=== PATIENT | female | born 2000 | race Caucasian/White ===

== ENCOUNTER 2019-01-29 14:04 | Emergency (ER) | payer BC, OTHER ==
[~2019-01-29] VITALS: Ht 170.2 cm; Wt 65.8 kg
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
[2019-01-29] MEDS ORDERED: ACETAMINOPHEN 325 MG TABLET PO ONE (14:30)
[2019-01-29] MEDS ORDERED: IBUPROFEN 600 MG TABLET PO ONE ×2 (14:30→14:38)
[2019-01-29] MEDS ORDERED: ACETAMINOPHEN ES 500 MG TABLET ONE (14:37)
[2019-01-29 15:33] VITALS: BP 111/68
== END 2019-01-29 15:44 | disposition home or self-care (01) ==
LOC: ER 14:06
DX: S92.515A Nondisplaced fracture of proximal phalanx of left lesser toe(s), initial encounter for closed fracture (principal); Z88.1 Allergy status to other antibiotic agents; W50.0XXA Accidental hit or strike by another person, initial encounter; Y93.11 Activity, swimming; Y92.34 Swimming pool (public) as the place of occurrence of the external cause; Y99.8 Other external cause status
CPT/HCPCS: 73630-TC